=== PATIENT | female | born 1990 | race Caucasian/White ===

== ENCOUNTER → 2018-11-18 11:12 | Outpatient (CLI) | payer OTHER, SELFPAY ==
[2018-11-18 11:46] LABS: Add Manual Diff / Slide Review NO; Basophils Absolute Auto 0 /uL (0-100); Basophils Percent Auto 0.6 % (0-2); Eosinophils Absolute Auto 200 /uL (0-450); Eosinophils Percent Auto 3.2 % (2-4); Hematocrit 35.5 % (36-46); Lymphocytes Absolute Auto 1500 /uL (1100-4500); Lymphocytes Percent Auto 21.8 % (25-40); Mean Corpuscular HGB Conc 33.9 % (30-36); Mean Corpuscular Hemoglobin 28.8 PG (26-34); Mean Corpuscular Volume 84.8 fL (80-100); Monocytes Absolute Auto 500 /uL (0-900); Monocytes Percent Auto 6.9 % (3-14); Neutrophils Absolute Auto 4500 /uL (1500-7000); Neutrophils Percent Auto 67.5 % (50-75); Platelet Count 233 X10^3/uL (150-400); Red Blood Cell Count 4.18 X10^6/uL (4.0-5.2); Red Cell Distribution Width 13.2 % (11.6-14.8); White Blood Cell Count 6.7 X10^3/uL (4.5-11.0)
[2018-11-18 12:09] LABS: Alanine Aminotransferase 24 IU/L (9-52); Albumin 4.2 g/dL (3.5-5.0); Albumin Globulin Ratio 1.6 (1.0-2.8); Alkaline Phosphatase 32 U/L (38-126); Aspartate Aminotransferase 23 IU/L (14-36); BUN Creatinine Ratio 21.7 (6-22); Bilirubin Total 0.3 mg/dL (0.2-1.3); Blood Urea Nitrogen 13 mg/dL (7-17); Calcium 9.3 mg/dL (8.4-10.2); Carbon Dioxide 26 mmol/L (22-32); Chloride 105 mmol/L (98-107); Estimated Glomerular Filt Rate > 60.0 mL/min (>60); Globulin 2.7 g/dL (1.7-4.1); Glucose 89 mg/dL (70-100); HEMOLYSIS < 15 (0-50); Potassium 4.4 mmol/L (3.4-5.1); Sodium 139 mmol/L (137-145); Total Protein 6.9 g/dL (6.3-8.2)
[2018-11-18 12:52] LABS: TSH w/ Reflex to FT4 1.32 uIU/mL (0.47-4.68)
== END ==
PROVIDERS: PCP Nurse Practitioner; Visit Provider Nurse Practitioner
DX: Z00.00 Encounter for general adult medical examination without abnormal findings (principal); R63.4 Abnormal weight loss
CPT/HCPCS: 36415; 80053; 84443; 85025

== ENCOUNTER → 2019-08-31 14:50 | Outpatient (CLI) | payer OTHER, MEDICAID, SELFPAY ==
[2019-08-31 14:57] LABS: Bacteria Urine None Seen
[2019-08-31 15:35] LABS: Add Manual Diff / Slide Review NO; Basophils Absolute Auto 0 /uL (0-100); Basophils Percent Auto 0.4 % (0-2); Eosinophils Absolute Auto 100 /uL (0-450); Hematocrit 38.4 % (36-46); Hemoglobin 12.8 g/dL (12.0-16.0); Lymphocytes Absolute Auto 1200 /uL (1100-4500); Lymphocytes Percent Auto 10.3 % (25-40); Mean Corpuscular HGB Conc 33.3 % (30-36); Mean Corpuscular Hemoglobin 28.5 PG (26-34); Mean Corpuscular Volume 85.7 fL (80-100); Monocytes Absolute Auto 600 /uL (0-900); Monocytes Percent Auto 5.3 % (3-14); Neutrophils Absolute Auto 9700 /uL (1500-7000); Platelet Count 287 X10^3/uL (150-400); Red Blood Cell Count 4.48 X10^6/uL (4.0-5.2); Red Cell Distribution Width 14.1 % (11.6-14.8); White Blood Cell Count 11.7 X10^3/uL (4.5-11.0)
[2019-08-31 15:36] LABS: Appearance Urine UA CLEAR; Bilirubin Urine UA NEGATIVE (NEGATIVE); Color Urine UA YELLOW; Glucose Urine UA NEGATIVE (Negative); Ketones Urine UA NEGATIVE (NEGATIVE); Leukocyte Esterase Urine UA NEGATIVE (NEGATIVE); Nitrite Urine UA NEGATIVE (Negative); Occult Blood Urine UA NEGATIVE (Negative); Protein Urine UA NEGATIVE (Negative); Urobilinogen Urine UA 0.2 E.U./dL (0.2)
[2019-08-31 15:54] LABS: Culture Indicated Urine Cult Not Indicated; RBC Urine 0-1/HPF (0-5/HPF); Squamous Epithelial Cell Urine 5-10 /HPF (0-5/HPF); Transitional Epi Cells Urine 0-1/HPF (0-5/HPF); WBC Urine 0-1/HPF (0-5/HPF)
[2019-08-31 16:02] LABS: Alanine Aminotransferase 19 IU/L (<35); Albumin 4.3 g/dL (3.5-5.0); Albumin Globulin Ratio 1.7 (1.0-2.8); Alkaline Phosphatase 43 U/L (38-126); Aspartate Aminotransferase 27 IU/L (14-36); BUN Creatinine Ratio 13.3 (6-22); Bilirubin Total 0.3 mg/dL (0.2-1.3); Blood Urea Nitrogen 8 mg/dL (7-17); Calcium 9.6 mg/dL (8.4-10.2); Carbon Dioxide 28 mmol/L (22-32); Chloride 105 mmol/L (98-107); Estimated Glomerular Filt Rate > 60.0 mL/min (>60); Globulin 2.5 g/dL (1.7-4.1); Glucose 93 mg/dL (70-100); HEMOLYSIS < 15 (0-50); Lipase 58 U/L (23-300); Potassium 4.4 mmol/L (3.4-5.1); Sodium 138 mmol/L (137-145); Total Protein 6.8 g/dL (6.3-8.2)
[2019-08-31 16:17] LABS: HCG Quantitative /Beta subunit < 2.4 mIU/mL
[2019-08-31 16:31] LABS: TSH w/ Reflex to FT4 0.55 uIU/mL (0.47-4.68)
== END ==
PROVIDERS: PCP Nurse Practitioner; Referring Provider Registered Nurse Diabetes Educator; Visit Provider Registered Nurse Diabetes Educator
DX: R10.9 Unspecified abdominal pain (principal); R42 Dizziness and giddiness
CPT/HCPCS: 36415; 80053; 81001; 83690; 84443; 84702; 85025

== ENCOUNTER → 2019-12-21 13:38 | Outpatient (CLI) | payer OTHER, MEDICAID, SELFPAY ==
[2019-12-21 14:45] LABS: Influenza A - CEPHEID Flu A NEGATIVE (NEGATIVE); Influenza B - CEPHEID Flu B NEGATIVE (NEGATIVE)
[2019-12-23 20:06] LABS: COVID19 Sendout Not Detected (Not Detect)
== END ==
PROVIDERS: PCP Nurse Practitioner; Visit Provider Physician Assistant
DX: R68.89 Other general symptoms and signs (principal); Z11.59 Encounter for screening for other viral diseases
CPT/HCPCS: 87502; 87635

== ENCOUNTER 2020-07-17 12:23 | Emergency (ER) | payer OTHER, MEDICAID, SELFPAY ==
[2020-07-17 12:23] VITALS: BP 122/58; PULSE 72; RESP 16; TEMP 36.5; O2SAT 98; BMI 22.1
--- NOTE | 2020-07-17 12:42 | ED_ITS ---
HPI - General Adult General Chief complaint: Shortness of Breath/Dyspnea Stated complaint: SOB Time Seen by Provider: 07/17/20 12:31 Source: patient Mode of arrival: Ambulatory Limitations: no limitations History of Present Illness HPI narrative: 30-year-old female who is here in the emergency department for evaluation of approximately 1 week of occasional shortness of breath. She states that it has happened every day however there have been periods where she has not any symptoms. She does not think that is associated with any chest discomfort. She recently had a endoscopy for further evaluation of reflux d isease/ulcer. She has not tried anything for her symptoms. Related Data Home Medications Medication Instructions Recorded Confirmed No Known Home Medications 08/23/18 03/05/20 Previous Rx's Medication Instructions Recorded fluconazole 150 mg tablet 150 mg PO Q3D #2 tab 06/20/20 Allergies Allergy/AdvReac Type Severity Reaction Status Date / Time Sulfa (Sulfonamide Allergy Mild skin rash Verified 03/05/20 14:03 Antibiotics) Review of Systems Constitutional Constitutional: Reports system reviewed and no additional complaints, except as documented and Denies fever(s) Cardiovascular Cardiovascular: Denies chest pain and Reports dyspnea Respiratory Respiratory: Denies cough and Reports dyspnea Gastrointestinal Gastrointestinal: Reports system reviewed and no additional complaints, except as documented and Denies abdominal pain Musculoskeletal Musculoskeletal: Reports system reviewed and no additional complaints, except as documented and Denies back pain Integumentary/Breasts Skin/Breast: Reports system reviewed and no additional complaints, except as do cumented Neurologic Neurologic: Reports system reviewed and no additional complaints, except as documented Hematologic/Lymphatic Hematologic/Lymphatic: Reports system reviewed and no additional complaints, except as documented Allergic/Immunologic Allergic/Immunologic: Reports system reviewed and no additional complaints, except as documented Patient History Medical History Abdominal pain Allergies (~2013) Anxiety (~2012) Astigmatism Carpal tunnel syndrome (~2010) Chicken pox (~1995) Depression (~2013) Dizziness GERD (gastroesophageal reflux disease) (~2016) Ovarian cyst (~2008) Surgical History Anesthesia Encounter for insertion of ParaGard IUD (~09/28/16) [place] teeth removed (~2009) Family History Father Hyperlipidemia Hypertension Mother Hyperlipidemia Sister Mental health problem Grandfather Cancer Grandmother History of heart disease Stroke Grandmother Cancer Social History Smoking Status: Current every day smoker Smoking Status: Current every day smoker tobacco type: cigarettes Substance Use Type: does not use Exam Initial Vital Signs Initial Vital Signs: Vital Signs Temperature 97.7 F 07/17/20 12:23 Pulse Rate 72 07/17/20 12:23 Respiratory Rate 16 07/17/20 12:23 Blood Pressure 122/58 L 07/17/20 12:23 Pulse Oximetry 98 07/17/20 12:23 Const General: cooperative, healthy appearing and comfortable Limitations: mental status not altered HENMT Head: normal to inspection and normocephalic Resp Effort & Inspection: normal respiratory effort Auscultation: clear to auscultation bilaterally Cardio Rate: regular rate Rhythm: regular rhythm GI Inspection: non-distended Palpation: soft Skin Lesions: no lesions Rashes: no rashes Neuro General: patient alert and patient awake Cognition: normal cognition Speech: speech normal Extrem General: normal to inspection and capillary refill normal Psych Appearance: grossly normal and well kempt Course Vital Signs Vital signs: Vital Signs - 8 hr 07/17/20 12:23 Temperature 97.7 F Pulse Rate 72 Respiratory Rate 16 Blood Pressure 122/58 L Pulse Oximetry 98 Medical Decision Making Imaging Data Chest x-ray: Radiologist's Impression: [address] [id number] ReportSigned Patient: Maryjo Dill [facility]#: [id number]: 1990Acct:[id number]/Sex: 30 / FDate of Service: 07/17/20Loc: EDAccession Number: [id number] Procedure: XR chest 1V Ordering Provider: Syd Regalado D.O. PROCEDURE: XR CHEST 1V INDICATIONS: SHORTNESS OF BREATH TECHNIQUE: One view of the chest was acquired. COMPARISON: None. FINDINGS: Surgical changes and devices: None. Lungs and pleura: Lungs are clear. No pleural effusions or pneumothorax. Mediastinum: Mediastinal contours appear normal. Heart size is normal. Bones and chest wall: No suspicious bony lesions. Overlying soft tissues appear unremarkable. IMPRESSION: No acute cardiopulmonary findings Dictated by: Guillaume Benites M.D. on 07/17/2020 at 12:29 Approved by: Guillaume Benites M.D. on 07/17/2020 at 12:29 [facility] Narrative Medical decision making narrative: Chest x-ray is unremarkable. She has a benign exam. Is in no respiratory distress. Tachypneic. I have low suspicion for pneumonia. Low suspicion for ACS. Low suspicion for pulmonary embolism. She does have a history of reflux disease. She is no longer on any medications for this. She stated that her endoscopy that was performed did not show any ulcers. I wonder if her occasional shortness of breath is related to aspiration secondary to reflux disease. Unfortunately I have no way of definitively knowing this. I did recommend that she start back on her medicines to see if this does not resolve her symptoms. No indication for antibiotics. We discussed return precautions and follow-up instructions. She expressed understanding and agreement Discharge Plan Departure Patient Disposition: Home Clinical Impression: Shortness of breath Instructions: DI for Shortness of Breath Activity Restrictions/Additional Instructions: Your x-ray and exam today are very reassuring. I recommend that you start back on your reflux medications like we discussed. Keep all of your scheduled medical appointments. Return to the emergency department for any new or worsening symptoms Prescriptions: No Action fluconazole [Diflucan] 150 mg tablet 150 mg PO Q3D Qty: 2 RF: 1 No Known Home Medications RF: 0 Referrals: Magaly Tavarez ARNP [Primary Care Provider] -
== END 2020-07-17 13:53 | disposition home or self-care (01) ==
PROVIDERS: Emergency Provider Emergency Medicine; PCP Nurse Practitioner
DX: R06.02 Shortness of breath (principal)
CPT/HCPCS: 71045; 99283

== ENCOUNTER 2020-10-22 03:54 | Emergency (ER) | payer OTHER, MEDICAID, SELFPAY ==
[2020-10-22 04:00] VITALS: PULSE 89; RESP 12; O2SAT 99
[2020-10-22 04:01] VITALS: BP 145/69; PULSE 95; RESP 18; TEMP 36.7; O2SAT 98; BMI 22.1
--- NOTE | 2020-10-22 04:03 | DI.RAD.S_ITS ---
PROCEDURE: XR CHEST 1V INDICATIONS: chest pressure, heart racing TECHNIQUE: One view of the chest was acquired. COMPARISON: [facility], , XR CHEST 1V, 07/17/2020, 12:49. FINDINGS: Surgical changes and devices: None. Lungs and pleura: Lungs are clear. No pleural effusions or pneumothorax. Mediastinum: Mediastinal contours appear normal. Heart size is normal. Bones and chest wall: No suspicious bony lesions. Overlying soft tissues appear unremarkable. IMPRESSION: No evidence acute pulmonary process. Comment: Final report is concordant with preliminary interpretation provided by [facility]. Dictated by: Clayton Maza M.D. on 10/22/2020 at 7:57 Approved by: Clayton Maza M.D. on 10/22/2020 at 7:57
--- NOTE | 2020-10-22 04:13 | ED_ITS ---
HPI - Arrhythmia/Palpitations General Chief Complaint: Arrhythmia/Palpitations Stated Complaint: WAKING UP WITH DIZZINESS HEART POUNDING Time Seen by Provider: 10/22/20 03:55 Source: patient Mode of arrival: Ambulatory Limitations: no limitations History of Present Illness HPI narrative: 30-year-old female smoker with history of depression, anxiety presents with significant other and a chief complaint of having difficulty sleeping after waking with palpitations, chest pressure and lightheadedness. She states that her symptoms are still present and there is no obvious provocation or palliation. She states that this has been happening nearly every night this week despite the fact that she feels fine during the day. She denies any prescription or leda-sje-spbfoia medications. She denies any dietary change or change in behavior, work or social activities. She states that she had 3 drinks last night which isn't necessarily abnormal for her. She is vaccinated against COVID. She denies any runny nose, sore throat or cough. She denies any recent travel, history of blood clot. She denies abdominal pain, vomiting or diarrhea but she is slightly nauseated. She has no dysuria, frequency or urgency. Her last menstrual cycle was a few weeks ago and normal for her Related Data Home Medications Medication Instructions Recorded Confirmed No Known Home Medications 08/23/18 03/05/20 Previous Rx's Medication Instructions Recorded fluconazole 150 mg tablet 150 mg PO Q3D #2 tab 06/20/20 (Diflucan) Allergies Allergy/AdvReac Type Severity Reaction Status Date / Time Sulfa (Sulfonamide Allergy Mild skin rash Verified 03/05/20 14:03 Antibiotics) Review of Systems Review of Systems Narrative: GENERAL: See HPI HEENT: Denies sinus pain, ear pain, sore throat, difficulty swallowing, dizziness. RESPIRATORY: See HPI CARDIOVASCULAR: See HPI GASTROINTESTINAL: See HPI : Denies dysuria, frequency, incontinence, hematuria, urinary retention. MUSCULOSKELETAL: denies weakness, joint pain, or bony pain SKIN: Denies rash, skin lesions, or other NEUROLOGIC: Denies weakness, headache, numbness, change in speech, confusion, seizures, incoordination. PSYCHIATRIC: No concerning psychosocial issues. 12 point review of systems is negative except for those stated above Patient History Medical History (Updated 10/22/20 @ 05:47 by Dominguez Vega DO) Abdominal pain Allergies (~2013) Anxiety (~2012) Astigmatism Carpal tunnel syndrome (~2010) Chicken pox (~1995) Depression (~2013) Dizziness GERD (gastroesophageal reflux disease) (~2016) Ovarian cyst (~2008) Surgical History Anesthesia Encounter for insertion of ParaGard IUD (~09/28/16) [place] teeth removed (~2009) Family History Father Hyperlipidemia Hypertension Mother Hyperlipidemia Sister Mental health problem Grandfather Cancer Grandmother History of heart disease Stroke Grandmother Cancer Social History Smoking Status: Current every day smoker Smoking Status: Current every day smoker tobacco type: cigarettes alcohol intake frequency: 0-2 drinks per day Substance Use Type: does not use Exam Narrative Exam Narrative: GENERAL: [30] year old patient appears stated age. Well-d eveloped patient, in mild distress. HEAD: Atraumatic. Normocephalic. EYES: Pupils equal round and reactive. Extraocular motions intact. No scleral icterus. No injection or drainage. ENT: Nose without bleeding, purulent drainage. Throat without erythema, tonsillar hypertrophy or exudate. Airway patent. NECK: Trachea midline. Non tender CARDIOVASCULAR: Regular rate and rhythm without murmurs, gallops, or rubs. RESPIRATORY: Clear to auscultation. Breath sounds equal bilaterally. No wheezes, rales, or rhonchi. GASTROINTESTINAL: Abdomen soft, non-tender, nondistended. EXTREMITIES: No edema or joint tenderness. BACK: Nontender without deformity or crepitance. No flank tenderness. NEURO: AOx3. SKIN: No rash or erythema of visible areas Initial Vital Signs Initial Vital Signs: Vital Signs Pulse Rate 89 10/22/20 04:00 Respiratory Rate 12 10/22/20 04:00 Pulse Oximetry 99 10/22/20 04:00 Course Orders Ordered: ED Orders 10/22/20 04:03 XR chest 1V Stat EKG-12 Lead Stat 10/22/20 04:15 Basic Metabolic Panel Stat COVID19 -Nasal swab/Pre-Proc Stat Complete Blood Count AUTO DIFF Stat Magnesium Stat Thyroid Stimulating Hormone Stat Troponin & CK Cardiac Panel Stat Discontinued Medications Sodium Chloride (Normal Saline 0.9%) 1,000 mls @ 1,000 mls/hr IV BOLUS ONE Stop: 10/22/20 05:02 Last Infusion: 10/22/20 05:20 Dose: 1,000 mls/hr Documented by: Admin: 10/22/20 04:22 Dose: 1,000 mls/hr Documented by: [place] Vital Signs Vital signs: Vital Signs - 8 hr 10/22/20 04:00 10/22/20 04:01 10/22/20 04:30 Temperature 98.1 F Pulse Rate 89 95 H 71 Respiratory Rate 12 18 18 Blood Pressure 145/69 H Pulse Oximetry 99 98 100 10/22/20 06:03 Temperature Pulse Rate 65 Respiratory Rate 15 Blood Pressure 103/60 Pulse Oximetry 98 MDM - Arrhythmia/Palpitations Lab Data Result diagrams: 10/22/20 04:15 10/22/20 04:15 Labs: Lab Results 10/22/20 10/22/20 10/22/20 Range/Units 04:15 04:15 04:15 WBC 9.9 (4.5-11.0) X10^3/uL RBC 4.55 (4.0-5.2) X10^6/uL Hgb 13.1 (12.0-16.0) g/dL Hct 39.1 (36-46) % MCV 85.9 (80-100) fL MCH 28.7 (26-34) PG MCHC 33.4 (30-36) % RDW 12.8 (11.6-14.8) % Plt Count 310 (150-400) X10^3/uL Neut % (Auto) 58.5 (50-75) % Lymph % (Auto) 29.4 (25-40) % [place] % (Auto) 6.2 (3-14) % Eos % (Auto) 5.0 H (2-4) % Baso % (Auto) 0.9 (0-2) % Neut # (Auto) 5800 (6009-8106) /uL Lymph # (Auto) 2900 (1582-6339) /uL [place]corn # (Auto) 600 (0-900) /uL Eos # (Auto) 500 H (0-450) /uL Baso # (Auto) 100 (0-100) /uL Sodium 139 (137-145) mmol/L Potassium 4.0 (3.4-5.1) mmol/L Chloride 104 (98-107) mmol/L Carbon Dioxide 28 (22-32) mmol/L BUN 15 (7-17) mg/dL Creatinine 0.57 (0.52-1.04) mg/dL Estimated GFR > 60.0 (>60) mL/min BUN/Creatinine Ratio 26.3 H (6-22) Glucose 98 (70-100) mg/dL Calcium 9.5 (8.4-10.2) mg/dL Magnesium 2.0 (1.6-2.3) mg/dL Total Creatine Kinase 41 (30-135) U/L CK-MB (CK-2) TNP CK-MB (CK-2) Rel Index TNP Troponin I < 0.012 (0.01-0.034) ng/mL TSH 5.08 H (0.47-4.68) uIU/mL SARS-CoV-2 (PCR) (Negative) 10/22/20 Range/Units 04:15 WBC (4.5-11.0) X10^3/uL RBC (4.0-5.2) X10^6/uL Hgb (12.0-16.0) g/dL Hct (36-46) % MCV (80-100) fL MCH (26-34) PG MCHC (30-36) % RDW (11.6-14.8) % Plt Count (150-400) X10^3/uL Neut % (Auto) (50-75) % Lymph % (Auto) (25-40) % [place] % (Auto) (3-14) % Eos % (Auto) (2-4) % Baso % (Auto) (0-2) % Neut # (Auto) (2898-8737) /uL Lymph # (Auto) (1357-6316) /uL Alcorn # (Auto) (0-900) /uL Eos # (Auto) (0-450) /uL Baso # (Auto) (0-100) /uL Sodium (137-145) mmol/L Potassium (3.4-5.1) mmol/L Chloride (98-107) mmol/L Carbon Dioxide (22-32) mmol/L BUN (7-17) mg/dL Creatinine (0.52-1.04) mg/dL Estimated GFR (>60) mL/min BUN/Creatinine Ratio (6-22) Glucose (70-100) mg/dL Calcium (8.4-10.2) mg/dL Magnesium (1.6-2.3) mg/dL Total Creatine Kinase (30-135) U/L CK-MB (CK-2) CK-MB (CK-2) Rel Index Troponin I (0.01-0.034) ng/mL TSH (0.47-4.68) uIU/mL SARS-CoV-2 (PCR) Negative (Negative) Point of Care Testing Test Results Negative Urine Dip Bedside Urine Glucose Negative Bedside Urine Bilirubin - Negative Bedside Urine Ketone - Negative Urine Specific [place] 1.030 Bedside Urine Occult Blood - Negative Bedside Urine pH 6.0 Bedside Urine Protein - Negative Bedside Urine Urobilinogen - Negative Bedside Urine Nitrite - Negative Bedside Urine Leukocytes - Negative Esterase ECG Data Interpretation: EKG is normal sinus rhythm rate [70 ] and free of any signs of ischemia or ectopy. No ST segmental elevation or depression. No T wave inversions MDM Narrative Medical decision making narrative: Multiple etiologies for patient's symptoms considered including: [arrhythmia vs. electrolyte abnormality vs. dehydration vs. thyroid disease vs. anxiety vs. other] Patient's symptoms improved over duration of stay with above-stated therapies. Findings and discharge diagnosis discussed with patient/family followed by verbalization of understanding Return precautions discussed with patient/family whom verbalize understanding. Discharge Plan Departure Patient Disposition: Home Clinical Impression: Heart palpitations, Nausea, Atypical chest pain Instructions: DI for Nausea -- Adult Activity Restrictions/Additional Instructions: *You have been diagnosed with [nausea, palpitations, atypical chest pain. Your physical exam, lab work and EKG are very reassuring] *What to do: *Please continue to take your regular medications as directed. [ ] New medication prescriptions sent to your pharmacy: [ ] [ ] New medication written as a paper prescription [ x] No new medications given *Please follow up with your primary care provider in 2-3 days, call for an appointment. Let them know you were seen in the Emergency Department and that we ask that you be seen in follow up. We will electronically transmit a record of today's note if your PCP is in our system *If you do not have a primary care provider please contact the [facility] Resource line at [phone]. They will ask some questions about your medical history and help get you set up with a doctor in the community. *Return to Emergency Department if you should have any new, worsening or concerning symptoms, such as [fever greater than 101 F, shaking chills, worsening pain, persistent vomiting or other bothersome symptoms] Prescriptions: No Action fluconazole [Diflucan] 150 mg tablet 150 mg PO Q3D Qty: 2 RF: 1 No Known Home Medications RF: 0 Referrals: Magaly Tavraez ARNP [Primary Care Provider] -
[2020-10-22] MEDS: SODIUM CHLORIDE 0.9% 1,000 ML 1000 ML IV (04:22)
[2020-10-22 04:30] VITALS: PULSE 71; RESP 18; O2SAT 100
[2020-10-22 04:39] LABS: Add Manual Diff / Slide Review NO; Basophils Absolute Auto 100 /uL (0-100); Basophils Percent Auto 0.9 % (0-2); Eosinophils Absolute Auto 500 /uL (0-450); Hematocrit 39.1 % (36-46); Hemoglobin 13.1 g/dL (12.0-16.0); Lymphocytes Absolute Auto 2900 /uL (1100-4500); Lymphocytes Percent Auto 29.4 % (25-40); Mean Corpuscular HGB Conc 33.4 % (30-36); Mean Corpuscular Hemoglobin 28.7 PG (26-34); Mean Corpuscular Volume 85.9 fL (80-100); Monocytes Absolute Auto 600 /uL (0-900); Monocytes Percent Auto 6.2 % (3-14); Neutrophils Absolute Auto 5800 /uL (1500-7000); Neutrophils Percent Auto 58.5 % (50-75); Platelet Count 310 X10^3/uL (150-400); Red Blood Cell Count 4.55 X10^6/uL (4.0-5.2); Red Cell Distribution Width 12.8 % (11.6-14.8); White Blood Cell Count 9.9 X10^3/uL (4.5-11.0)
[2020-10-22 04:49] LABS: COVID19 -Nasal RAPID Negative (Negative)
[2020-10-22 04:57] LABS: BUN Creatinine Ratio 26.3 (6-22); Blood Urea Nitrogen 15 mg/dL (7-17); Calcium 9.5 mg/dL (8.4-10.2); Carbon Dioxide 28 mmol/L (22-32); Chloride 104 mmol/L (98-107); Creatine Kinase 41 U/L (30-135); Estimated Glomerular Filt Rate > 60.0 mL/min (>60); Glucose 98 mg/dL (70-100); Sodium 139 mmol/L (137-145)
[2020-10-22 05:10] LABS: HEMOLYSIS < 15 (0-50); Troponin I < 0.012 ng/mL (0.01-0.034)
[2020-10-22 05:34] LABS: Thyroid Stimulating Hormone 5.08 uIU/mL (0.47-4.68)
[2020-10-22 06:03] VITALS: BP 103/60; PULSE 65; RESP 15; O2SAT 98
== END 2020-10-22 06:04 | disposition home or self-care (01) ==
PROVIDERS: Emergency Provider Emergency Medicine; PCP Nurse Practitioner
DX: R00.2 Palpitations (principal); R07.89 Other chest pain; R11.0 Nausea; R42 Dizziness and giddiness; Z20.822 Contact with and (suspected) exposure to COVID-19
CPT/HCPCS: 36415; 71045; 80048; 81003; 81025; 82550; 83735; 84443; 84484; 85025; 87635; 93005; 96360; 99284; C9803

== ENCOUNTER 2020-10-26 19:17 | Emergency (ER) | payer OTHER, MEDICAID, SELFPAY ==
[2020-10-26 19:19] VITALS: BP 126/69; PULSE 109; RESP 20; TEMP 36.6; O2SAT 100; BMI 22.1
--- NOTE | 2020-10-26 19:28 | DI.CT.S_ITS ---
PROCEDURE: CT HEAD/BRAIN WO CON INDICATIONS: headache with vision changes TECHNIQUE: Noncontrast 4.5 mm thick angled axial sections acquired from the foramen magnum to the vertex, with coronal and sagittal reformats. For radiation dose reduction, the following was used: automated exposure control, adjustment of mA and/or kV according to patient size. COMPARISON: None. FINDINGS: Image quality: Excellent. CSF spaces: Basal cisterns are patent. No extra-axial fluid collections. Ventricles are normal in size and shape. Brain: No midline shift. No acute intracranial hemorrhage. Lopez-white matter interface is normal. Incidental note pineal gland calcifications. No evidence for mass effect or hydrocephalus. Skull and face: Calvarium and visualized facial bones are intact, without suspicious lesions. Sinuses: Visualized sinuses and mastoids are clear. IMPRESSION: 1. CT head without acute intracranial abnormalities. 2. Incidental note of prominent dense pineal gland calcifications. No mass effect. No hydrocephalus. If there is persistent clinical concern, consider further evaluation with nonemergent contrast enhanced brain MRI. Dictated by: Power Martínez M.D. on 10/26/2020 at 20:27 Approved by: Power Martínez M.D. on 10/26/2020 at 20:34
[2020-10-26 22:25] VITALS: BP 96/75; PULSE 66; O2SAT 99
--- NOTE | 2020-10-26 22:41 | ED.HA ---
HPI - Headache General Chief Complaint: Headache Stated Complaint: HEADACHE VISION ISSUES CONSINTRATED RT EYE Time Seen by Provider: 10/26/20 22:41 Mode of arrival: Ambulatory Limitations: no limitations History of Present Illness HPI Narrative: 30-year-old female smoker with history of depression, anxiety?along with recent headaches and also some episodes of vision change in her right eye presents at the request of her primary care provider. She has had various symptoms as stated over the past days to weeks and her primary care provider is doing an excellent job of helping evaluate her. She denies any recent trauma. She denies much in the way of current symptoms. She's had no new medications or diet. She's had no fever, chills, or neck pain. There has been some discussion about whether not the headaches have been secondary to a change in her vision which might be corrected by the assistance of an digital color press operator. She states that the pain is largely on the right side of her head intense to be achy or throbbing in nature and the vision change often follows that. The vision change includes occasional haziness in her right eye, flashers or streaks. She denies any double vision or pain in her eye or with extraocular motions. Related Data Home Medications Medication Instructions Recorded Confirmed No Known Home Medications 08/23/18 03/05/20 Allergies Allergy/AdvReac Type Severity Reaction Status Date / Time Sulfa (Sulfonamide Allergy Mild skin rash Verified 10/26/20 19:23 Antibiotics) Review of Systems Review of Systems Narrative: GENERAL: Denies chills, fatigue, malaise, fever, sweats. HEENT: See HPI RESPIRATORY: Denies dyspnea, cough, wheezing, hemoptysis, sputum. CARDIOVASCULAR: Denies chest pain, palpitations, orthopnea, edema, GASTROINTESTINAL: Denies nausea, vomiting, abdominal pain, diarrhea, constipation, melena. : Denies dysuria, frequency, incontinence, hematuria, urinary retention. MUSCULOSKELETAL: denies weakness, joint pain, or bony pain SKIN: Denies rash, skin lesions, or other NEUROLOGIC: See HPI PSYCHIATRIC: No concerning psychosocial issues. 12 point review of systems is negative except for those stated above Patient History Medical History Abdominal pain Allergies (~2013) Anxiety (~2012) Astigmatism Carpal tunnel syndrome (~2010) Celiac disease Chicken pox (~1995) Depression (~2013) Dizziness GERD (gastroesophageal reflux disease) (~2016) Ovarian cyst (~2008) Surgical History Anesthesia Encounter for insertion of ParaGard IUD (~09/28/16) [place] teeth removed (~2009) Family History Father Hyperlipidemia Hypertension Mother Hyperlipidemia Sister Mental health problem Grandfather Cancer Grandmother History of heart disease Stroke Grandmother Cancer Social History Smoking Status: Current every day smoker Smoking Status: Current every day smoker tobacco type: cigarettes alcohol intake frequency: 0-2 drinks per day Substance Use Type: does not use Exam Narrative Exam Narrative: GENERAL: [30] year old patient appears stated age. Well-developed patient, in mild distress. HEAD: Atraumatic. Normocephalic. EYES: Pupils equal round and reactive. Extraocular motions intact. No scleral icterus. No injection or drainage. Pressure in right eye 21mmHg. normal fundoscopic, no hyphema ENT: Nose without bleeding, purulent drainage. Throat without erythema, tonsillar hypertrophy or exudate. Airway patent. NECK: Trachea midline. Non tender CARDIOVASCULAR: Regular rate and rhythm without murmurs, gallops, or rubs. RESPIRATORY: Clear to auscultation. Breath sounds equal bilaterally. No wheezes, rales, or rhonchi. GASTROINTESTINAL: Abdomen soft, non-tender, nondistended. EXTREMITIES: No edema or joint tenderness. BACK: Nontender without deformity or crepitance. No flank tenderness. NEURO: AOx3. SKIN: No rash or erythema of visible areas Initial Vital Signs Initial Vital Signs: Vital Signs Temperature 97.9 F 10/26/20 19:19 Pulse Rate 109 H 10/26/20 19:19 Respiratory Rate 20 10/26/20 19:19 Blood Pressure 126/69 10/26/20 19:19 Pulse Oximetry 100 10/26/20 19:19 Course Orders Ordered: Discontinued Medications Proparacaine HCl (Proparacaine 0.5% Ophth Sammie) 1 drops EYE-RIGHT NOW ONE Stop: 10/26/20 23:45 Last Admin: 10/26/20 23:49 Dose: 1 drop Documented by: HGUBERN Vital Signs Vital signs: Vital Signs - 8 hr 10/26/20 22:25 10/26/20 22:45 10/26/20 23:00 Pulse Rate 66 75 65 Blood Pressure 96/75 98/59 L Pulse Oximetry 99 100 100 10/26/20 23:30 Pulse Rate 67 Blood Pressure 99/58 L Pulse Oximetry 98 MDM - Headache Lab Data Labs: Point of Care Testing Test Results Negative Imaging Data CT scan - head: Radiologist's Impression: [facility] Narrative Medical decision making narrative: Patient has a very reassuring physical exam and CT scan. Patient has no other focal neurologic symptoms. Stroke thought to be unlikely, mass, subarachnoid hemorrhage also considered but thought unlikely. I do question the possibility of ocular migraines but also talked with the patient about having a conversation with her PCP about obtaining an MRI as MS should also be considered. She has been given return precautions and questions answered to her apparent satisfaction Discharge Plan Departure Patient Disposition: Home Clinical Impression: Alteration in vision Headache Qualifiers: Headache type: unspecified Headache chronicity pattern: unspecified pattern Intractability: not intractable Qualified Code(s): R51.9 - Headache, unspecified Instructions: DI for Headache Activity Restrictions/Additional Instructions: *You have been diagnosed with [headache and episodes of vision change *What to do: *Please continue to take your regular medications as directed. [ ] New medication prescriptions sent to your pharmacy: [ ] [ ] New medication written as a paper prescription [x ] No new medications given *Please follow up with your primary care provider in 2-3 days, call for an appointment. Let them know you were seen in the Emergency Department and that we ask that you be seen in follow up. We will electronically transmit a record of today's note if your PCP is in our system. It would seem reasonable to discuss the possibility of considering an MRI of your brain as the so 1 of the next steps for the evaluation of your symptoms, you can talk with your primary care provider about this *Return to ER if you should have any new, worsening or concerning symptoms, such as [ fever > 101F, neck pain or stiffness, vomiting, confusion, seizure, focal weakness, vision change, speech deficit or other concerning symptoms ] Prescriptions: No Action No Known Home Medications RF: 0 Referrals: Magaly Tavarez ARNP [Primary Care Provider] -
[2020-10-26 22:45] VITALS: PULSE 75; O2SAT 100
[2020-10-26 23:00] VITALS: BP 98/59; PULSE 65; O2SAT 100
[2020-10-26 23:30] VITALS: BP 99/58; PULSE 67; O2SAT 98
[2020-10-26] MEDS: PROPARACAINE 0.5% OPHTH SOL 1 DROPS EYE-RIGHT (23:49)
== END 2020-10-27 | disposition home or self-care (01) ==
PROVIDERS: Emergency Provider Emergency Medicine; PCP Nurse Practitioner
DX: H54.7 Unspecified visual loss (principal); R51.9 Headache, unspecified
CPT/HCPCS: 70450; 81025; 99282; 99284

== ENCOUNTER → 2020-11-15 07:07 | Outpatient (CLI) | payer OTHER, MEDICAID, SELFPAY ==
--- NOTE | 2020-11-15 07:08 | DI.MRI.S_ITS ---
PROCEDURE: MR HEAD/BRAIN WO/W CON INDICATIONS: Worsening migraine headaches TECHNIQUE: Noncontrast axial T1 spin echo, axial T2 fast spin echo, sagittal and axial FLAIR, coronal T2 fast spin echo, axial gradient echo, axial diffusion and ADC through the brain. After the administration of contrast, axial and coronal 3D VIBE or T1 spin echo with fat saturation through the brain. COMPARISON: [facility], CT, CT HEAD/BRAIN WO CON, 10/26/2020, 19:55. FINDINGS: Image quality: Excellent. CSF Spaces: Basal cisterns are patent. No extra-axial fluid collections. Ventricles are normal in size and shape. Brain: No midline shift. No intracranial bleeds or masses. No abnormal intracranial enhancement. The brainstem appears normal. 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 Diffusion-weighted images demonstrate no acute ischemic insults. No chronic ischemic insults. Normal intravascular flow voids are present. Skull and face: Calvarial marrow is normal in signal. Orbits appear normal. Sinuses: Sinuses and mastoids appear clear. IMPRESSION: Negative evaluation. No explanation for migraines. Dictated by: Ean Carbajal M.D. on 11/15/2020 at 8:43 Approved by: Ean Carbajal M.D. on 11/15/2020 at 8:45
== END ==
PROVIDERS: PCP Nurse Practitioner; Referring Provider Nurse Practitioner; Visit Provider Nurse Practitioner
DX: H54.7 Unspecified visual loss (principal); R42 Dizziness and giddiness; G43.909 Migraine, unspecified, not intractable, without status migrainosus
CPT/HCPCS: 70553

== ENCOUNTER → 2020-12-04 10:13 | Outpatient (CLI) | payer OTHER, MEDICAID, SELFPAY ==
[2020-12-04 10:51] LABS: COVID19 -Nasal RAPID Negative (Negative)
== END ==
PROVIDERS: PCP Nurse Practitioner; Referring Provider Nurse Practitioner Family; Visit Provider Nurse Practitioner Family
DX: Z20.822 Contact with and (suspected) exposure to COVID-19 (principal); J02.9 Acute pharyngitis, unspecified
CPT/HCPCS: 87070; 87635; 87880

== ENCOUNTER → 2020-12-05 15:26 | Outpatient (CLI) | payer OTHER, MEDICAID, SELFPAY ==
[2020-12-05 16:27] LABS: Free T3, Triiodothyronine Free 3.84 pg/mL (2.77-5.27); Free T4, Direct Thyroxine 1.01 ng/dL (0.78-2.19)
[2020-12-05 16:41] LABS: Thyroid Stimulating Hormone 0.456 uIU/mL (0.47-4.68)
[2020-12-06 06:54] LABS: Thyroid Peroxidase Antibodies <8 IU/mL (0-34)
== END ==
PROVIDERS: PCP Nurse Practitioner; Referring Provider Nurse Practitioner; Visit Provider Nurse Practitioner
DX: F32.9 Major depressive disorder, single episode, unspecified (principal); F41.9 Anxiety disorder, unspecified; K90.0 Celiac disease; R00.2 Palpitations; R07.89 Other chest pain; R42 Dizziness and giddiness; R79.89 Other specified abnormal findings of blood chemistry; R11.0 Nausea
CPT/HCPCS: 36415; 84439; 84443; 84481; 86376

== ENCOUNTER → 2021-03-04 18:07 | Outpatient (CLI) | payer OTHER, MEDICAID, SELFPAY ==
[2021-03-04 18:49] LABS: COVID19 -Nasal RAPID POSITIVE (Negative)
== END ==
PROVIDERS: PCP Nurse Practitioner; Referring Provider Nurse Practitioner Family; Visit Provider Nurse Practitioner Family
DX: Z20.822 Contact with and (suspected) exposure to COVID-19 (principal)
CPT/HCPCS: 87635

== ENCOUNTER → 2021-06-27 14:06 | Outpatient (CLI) | payer OTHER, MEDICAID, SELFPAY ==
[2021-06-28 11:15] LABS: Varicella IgG Antibody 1449 index (Immune >165)
[2021-06-29 16:27] LABS: QuantiFERON Mitogen Value >10.00 IU/mL (.); QuantiFERON Nil Value 0.01 IU/mL (.); QuantiFERON TB Gold Plus Negative (Negative); QuantiFERON TB1 Ag Value 0.01 IU/mL (.); QuantiFERON TB2 Ag Value 0.02 IU/mL (.)
[2021-06-30 14:36] LABS: Hepatitis B Virus HBV DNA not detected IU/mL (.)
== END ==
PROVIDERS: PCP Nurse Practitioner; Referring Provider Nurse Practitioner; Visit Provider Nurse Practitioner
DX: Z01.84 Encounter for antibody response examination (principal); Z11.1 Encounter for screening for respiratory tuberculosis
CPT/HCPCS: 36415; 86480; 86706; 86787

== ENCOUNTER → 2021-10-03 12:47 | Outpatient (CLI) | payer OTHER, SELFPAY ==
[2021-10-04 07:24] LABS: Hepatitis B Surf AB Quant 712.3 mIU/mL (Immunity>9.9)
== END ==
PROVIDERS: PCP Nurse Practitioner; Referring Provider Nurse Practitioner; Visit Provider Nurse Practitioner
DX: Z92.29 Personal history of other drug therapy (principal)
CPT/HCPCS: 36415; 86706

== ENCOUNTER 2023-05-28 15:15 | Outpatient (RCR) | payer OTHER, SELFPAY ==
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
--- NOTE | 2023-01-22 18:42 | PT.OPPOC ---
Physical, Occupational & Speech Therapy At Current Diagnoses Other headache syndrome (01/22/23) Other chronic pain (01/22/23) Cervicalgia (01/22/23) Abnormal posture (01/22/23) Dizziness and giddiness (01/22/23) Jaw pain (01/22/23) Visit Care Team Role Provider Type KIANA Bradshaw Primary Care Provider Advanced Package Delivery Room Service Runner Specialty: Family Practice Address: [address] [place] [address], [id number] Email: [email or web address] Power Quesada DO Family Provider Non-Staff Referring Provider Specialty: Medical Address: [address] [place] [address] [address], [place], [address] Email: Jorge L Garcia MD Attending Provider Non-Staff Specialty: Family Practice Address: [address] [place] [address], [facility] [address], [place], [address] Email: Plan Of Care PT-OP-T Assessment and Plan Start: 01/22/23 08:34 Freq: Status: Active Protocol: Document 01/22/23 16:41 [facility] (Rec: 01/22/23 18:42 [facility] [id number]) Physical Therapy Assessment Rehab Potential Rehabilitation Potential Excellent Evaluation Complexity Number of Personal Factors/Comorbidities 3 or More Number of Body Systems Impaired 4 or More Clinical Presentation at Evaluation Evolving Impairments Impairments Activity Tolerance,Functional Activities,Functional Mobility ,Pain,Posture,ROM,Soft Tissue Mobility,Strength Goals posture Short Term Goal (STG) Pt will adjust sleeping position w/improved support to dec instances of waking w/inc pain and adjust desk set up to more ergonomic set up. STG Duration 02/27/23 Mcfp Goal (LTG) Pt will score at least 4/5 on VCT in both seated and standing to show improved postural alignment to dec pain in neck and head. LTG Duration 04/02/23 MCFARLANE Short Term Goal (STG) Pt will have full neck ROM w/o pain in order to allow daily activities w/o inc pain. STG Duration 03/02/23 Mcfp Goal (LTG) Pt will report no starts to a MCFARLANE or MCFARLANE for 1 month LTG Duration 04/02/23 jaw Short Term Goal (STG) Pt will improve jaw opening to at least 40 mm to allow for greater ease w/eating. STG Duration 02/27/23 Mcfp Goal (LTG) Pt will report a more even bite and note that she has does not feel bite is off when trying to chew food, making eating easier. LTG Duration 04/02/23 Assessment Summary Assessment Pt presents w/main c/o MCFARLANE/ migraines, neck pain and jaw pain that results in inc tension overall that builds up to cause inc pain in her day and occ lead to bad MCFARLANE/ migranes, which require her to completely turn off lights and rest. She does report some dizziness that may be vestibular in nature as it does happen when she changes position and may benefit from further vesibular assessment and treatment in PT. Pt does have sheared and rotated C1 and C2 which may also be contributing signficiantly to the neck pain, jaw pain and MCFARLANE and possibly dizziness. Pt would benfit from Skilled PT to address postural deficits, dec cervical stability, improve mechanics, improve jaw and cervical ROM in order to dc pain. Physical Therapy Plan Frequency and Duration Frequency of Treatment 2x/Week Duration of treatment (weeks) 10 Plan of Care Start Date 01/22/23 Plan of Care End Date 04/02/23 Therapeutic Interventions Therapeutic Interventions Canalithic Repositioning,Home Exercise Program,Joint Mobilizations,Manual Therapy, Neuromuscular Re-education, Orthotic/Prosthetic Management ,Patient/Caregiver Education, Self-Care/Home Management,Soft Tissue Mobilization,Taping, Therapeutic Activities, Therapeutic Exercises, Vestibular Rehabilitation Modalities Cold Pack/Ice Massage,Electric Stimulation,Hot Packs, Traction- Mechanical Next Visit Focus/Plan Next Note Type Treatment Note Next Visit Plan HEP:rows, wall posture, axial elongation, jaw opening w/ tongue on rugae; manual: C1-2 correction, cranial and cervical STM, upper thoracic mobilizations Plan of Care Dates Plan of Care Start Date 01/22/23 Plan of Care End Date 04/02/23 Electronically Signed by: Tyesha Fang, PT 01/22/23 [id number] If you are in agreement with this Plan of Care, please return a signed and dated copy. I have reviewed this Plan of Care and certify that the skilled therapy services above are required to meet the patient?s needs. Physician Signature Date Printed Name and Credentials Clinical Instructor Signature Printed Name and Credentials
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
--- NOTE | 2023-03-23 15:21 | PT.OPPOC ---
Physical, Occupational & Speech Therapy At [facility] Current Diagnoses Other headache syndrome (03/23/23) Other chronic pain (03/23/23) Cervicalgia (03/23/23) Abnormal posture (03/23/23) Dizziness and giddiness (03/23/23) Jaw pain (03/23/23) Visit Care Team Role Provider Type KIANA Bradshaw Primary Care Provider Advanced Mechanic Welder Truck Driver Specialty: Family Practice Address: [address] [place] [address], [id number] Email: [email or web address] Power Quesada DO Family Provider Non-Staff Referring Provider Specialty: Medical Address: [address] [place] [address]. [facility] [address], [place], [address] Email: Jorge L Garcia MD Attending Provider Non-Staff Specialty: Family Practice Address: [address] [place] [address], [facility] [address], [place], [address] Email: Plan Of Care PT-OP-T Assessment and Plan Start: 01/22/23 08:34 Freq: Status: Active Protocol: Document 03/23/23 13:50 [facility] (Rec: 03/23/23 15:20 [facility] [id number]) Physical Therapy Assessment Goals dizziness Configuration Consultant Goal (LTG) Pt will report no instance of lightheadedness or dizziness during her day LTG Duration 06/01/23 posture Short Term Goal (STG) Pt will adjust sleeping position w/improved support to dec instances of waking w/inc pain and adjust desk set up to more ergonomic set up. 03/02-woke up w/pain today; about 2-3x/week. STG Duration achieved 03/23 Configuration Consultant Goal (LTG) Pt will score at least 4/5 on VCT in both seated and standing to show improved postural alignment to dec pain in neck and head. 03/02-3/5 stand; 4/5 sit LTG Duration achieved MCFARLANE Short Term Goal (STG) Pt will have full neck ROM w/o pain in order to allow daily activities w/o inc pain. STG Duration achieved Half-Way Goal (LTG) Pt will report no starts to a MCFARLANE or MCFARLANE for 1 month 03/02-no MCFARLANE; has had a couple instances of start of MCFARLANE but hasn't escalated and cleared her sinuses and it was fine LTG Duration achieved jaw Short Term Goal (STG) Pt will improve jaw opening to at least 40 mm to allow for greater ease w/eating. 03/02-improved 03/23-dec today to 28 mm but improved to 38 after manual STG Duration 04/24/23 Configuration Consultant Goal (LTG) Pt will report a more even bite and note that she has does not feel bite is off when trying to chew food, making eating easier. 03/23-no change LTG Duration 06/01/23 Assessment Summary Assessment Pt has made great progress w/ PT with dec MCFARLANE, improved cervical ROMand did have inc jaw ROM until today but it did improve again after manual care. Focus to be on pt's bite and improving ease w/eating. Physical Therapy Plan Frequency and Duration Frequency of Treatment 1x/Week Duration of treatment (weeks) 10 Plan of Care Start Date 03/23/23 Plan of Care End Date 06/01/23 Therapeutic Interventions Therapeutic Interventions Canalithic Repositioning,Home Exercise Program,Joint Mobilizations,Manual Therapy, Neuromuscular Re-education, Orthotic/Prosthetic Management ,Patient/Caregiver Education, Self-Care/Home Management,Soft Tissue Mobilization,Taping, Therapeutic Activities, Therapeutic Exercises, Vestibular Rehabilitation Modalities Cold Pack/Ice Massage,Electric Stimulation,Hot Packs, Traction- Mechanical Next Visit Focus/Plan Next Note Type Treatment Note Next Visit Plan check on visual tracking exercises; jaw focus manually Plan of Care Dates Plan of Care Start Date 03/23/23 Plan of Care End Date 06/01/23 Electronically Signed by: Tyesha Fang, PT 03/23/23 4819 If you are in agreement with this Plan of Care, please return a signed and dated copy. I have reviewed this Plan of Care and certify that the skilled therapy services above are required to meet the patient?s needs. Physician Signature Date Printed Name and Credentials Clinical Instructor Signature Printed Name and Credentials
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
--- NOTE | 2023-05-20 18:07 | PT.OPPOC ---
Physical, Occupational & Speech Therapy At [facility] Current Diagnoses Other headache syndrome (05/20/23) Other chronic pain (05/20/23) Cervicalgia (05/20/23) Abnormal posture (05/20/23) Dizziness and giddiness (05/20/23) Jaw pain (05/20/23) Visit Care Team Role Provider Type KIANA Bradshaw Primary Care Provider Advanced Retail Leasing Agent Specialty: Family Practice Address: [address] [place] [address], [id number] Email: [email or web address] Power Quesada DO Family Provider Non-Staff Referring Provider Specialty: Medical Address: [address] [place] [address]. [facility] [address], [place], [address] Email: Jorge L Garcia MD Attending Provider Non-Staff Specialty: Family Practice Address: [address] [place] [address], [facility] [address], [place], [address] Email: Plan Of Care PT-OP-T Assessment and Plan Start: 01/22/23 08:34 Freq: Status: Active Protocol: Document 05/20/23 16:04 [facility] (Rec: 05/20/23 18:07 [facility] [id number]) Physical Therapy Assessment Goals dizziness Broomcorn Scraper Goal (LTG) Pt will report no instance of lightheadedness or dizziness during her day 05/19-inc since virus LTG Duration 07/22 posture Short Term Goal (STG) Pt will adjust sleeping position w/improved support to dec instances of waking w/inc pain and adjust desk set up to more ergonomic set up. 03/02-woke up w/pain today; about 2-3x/week. STG Duration achieved 03/23 Broomcorn Scraper Goal (LTG) Pt will score at least 4/5 on VCT in both seated and standing to show improved postural alignment to dec pain in neck and head. 03/02-3/5 stand; 4/5 sit LTG Duration achieved MCFARLANE Short Term Goal (STG) Pt will have full neck ROM w/o pain in order to allow daily activities w/o inc pain. STG Duration achieved Broomcorn Scraper Goal (LTG) Pt will report no starts to a MCFARLANE or MCFARLANE for 1 month 03/02-no MCFARLANE; has had a couple instances of start of MCFARLANE but hasn't escalated and cleared her sinuses and it was fine LTG Duration achieved jaw Short Term Goal (STG) Pt will improve jaw opening to at least 40 mm to allow for greater ease w/eating. 03/02-improved 03/23-dec today to 28 mm but improved to 38 after manual 05/19-33mm STG Duration 06/23 Broomcorn Scraper Goal (LTG) Pt will report a more even bite and note that she has does not feel bite is off when trying to chew food, making eating easier. 03/23-no change 05/19-improved since new guards LTG Duration 07/22 Assessment Summary Assessment pt did have inc tightness of neck today. encouraged to try each oral appliance for 1 week fully to see which imrpoved symptomsm ost and discuss w/ dentist re: fit of lger one as they may be able to adjust it . Pt is overall doignw ell with ROM but does have deviation of jaw to L in rest and to R w/opening. cont PT to imrpove jaw and neck symptoms . Physical Therapy Plan Frequency and Duration Frequency of Treatment 1x/Week Duration of treatment (weeks) 8 Plan of Care Start Date 05/20/23 Plan of Care End Date 07/23/23 Therapeutic Interventions Therapeutic Interventions Canalithic Repositioning,Home Exercise Program,Joint Mobilizations,Manual Therapy, Neuromuscular Re-education, Orthotic/Prosthetic Management ,Patient/Caregiver Education, Self-Care/Home Management,Soft Tissue Mobilization,Taping, Therapeutic Activities, Therapeutic Exercises, Vestibular Rehabilitation Modalities Cold Pack/Ice Massage,Electric Stimulation,Hot Packs, Traction- Mechanical Next Visit Focus/Plan Next Note Type Treatment Note Next Visit Plan try exercise w/quick head turns; manual to work on jaw positiona nd neck position Plan of Care Dates Plan of Care Start Date 05/20/23 Plan of Care End Date 07/23/23 Electronically Signed by: Tyesha Fang, PT 05/20/23 8333 If you are in agreement with this Plan of Care, please return a signed and dated copy. I have reviewed this Plan of Care and certify that the skilled therapy services above are required to meet the patient?s needs. Physician Signature Date Printed Name and Credentials Clinical Instructor Signature Printed Name and Credentials
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
== END 2023-06-08 12:22 | disposition home or self-care (01) ==
LOC: PHYS 15:15
PROVIDERS: Family Provider Family Medicine; PCP Nurse Practitioner; Referring Provider Family Medicine; Visit Provider Family Medicine
DX: R68.84 Jaw pain (principal); G89.29 Other chronic pain; M54.2 Cervicalgia; R29.3 Abnormal posture; R42 Dizziness and giddiness; G44.89 Other headache syndrome
CPT/HCPCS: 97110; 97112; 97140; 97162; 97530; 97535

== ENCOUNTER 2023-08-07 21:30 | Emergency (ER) | payer OTHER, SELFPAY ==
--- NOTE | 2023-08-07 21:40 | DI.RAD.S_ITS ---
PROCEDURE: XR CHEST 1V INDICATIONS: chest pain TECHNIQUE: One view of the chest was acquired. COMPARISON: [facility], CR, XR CHEST 1V, 10/22/2020, 4:23. FINDINGS: Surgical changes and devices: None. Lungs and pleura: Lungs are clear. No pleural effusions or pneumothorax. Mediastinum: Mediastinal contours appear normal. Heart size is normal. Bones and chest wall: No suspicious bony lesions. Overlying soft tissues appear unremarkable. IMPRESSION: No acute cardiopulmonary abnormality is seen. Approved by: Amanda Paniagua M.D.,Ph.D. on 08/07/2023 at 22:49
[2023-08-07 21:42] VITALS: BP 143/64; PULSE 77; RESP 18; TEMP 36.7; O2SAT 100; BMI 21.7
--- NOTE | 2023-08-07 21:50 | EKG_ITS ---
[address] [address] Test Date: 2023-08-07 Pat Name: Maryjo Dill Department: Room: Gender: Female Principal Investigator: Norma : 1990 Requested By: Order Number: [id number] Reading MD: Solis Mcmahon MD Measurements Intervals [place] Rate: 70 P: 46 MA: 134 QRS: 17 QRSD: 88 T: 48 QT: 386 QTc: 416 Interpretive Statements Normal sinus rhythm Electronically Signed On 08-09-2023 12:03:22 PDT by Solis Mcmahon MD
--- NOTE | 2023-08-07 22:11 | ED.CHESTPAIN ---
HPI - Chest Pain General Chief Complaint: Chest Pain Stated Complaint: chest tight/erratic heart beat/SOB Time Seen by Provider: 08/07/23 22:11 Source: patient Mode of arrival: Ambulatory Limitations: no limitations History of Present Illness HPI narrative: Patient is a 33-year-old female who presents today with chest tightness. She reports that yesterday she vaped nicotine and thin 5 minute she felt like chest was tight. She sometimes feels palpitations through her what she notices that heart rate is in the 70s and just lying there tonight went up to 103. It is back down. She denies any recent travel she has not significantly short of breath she denies any fever chills or cough. She denies any recent travel reports that she is on a no hormone IUD Related Data Previous Rx's Medication Instructions Recorded escitalopram oxalate 5 mg tablet 10 mg (2 x 5 mg) PO DAILY #180 tabs 07/04/21 cefdinir 300 mg capsule 300 mg PO BID #20 caps 07/11/23 Allergies Allergy/AdvReac Type Severity Reaction Status Date / Time Sulfa (Sulfonamide Allergy Mild skin rash Verified 08/07/23 21:48 Antibiotics) Penicillins AdvReac Mild Rash Verified 08/07/23 21:48 Patient History Medical History Panic attacks Celiac disease Abdominal pain Dizziness Astigmatism Allergies (~2013) Depression (~2013) Anxiety (~2012) Carpal tunnel syndrome (~2010) Chicken pox (~1995) Ovarian cyst (~2008) GERD (gastroesophageal reflux disease) (~2016) Surgical History Anesthesia [place] teeth removed (~2009) Encounter for insertion of ParaGard IUD (~09/28/16) Family History Father Hyperlipidemia Hypertension Mother Hyperlipidemia Sister Mental health problem Grandfather Cancer Grandmother History of heart disease Stroke Grandmother Cancer Social History Smoking Status: Current every day smoker Smoking Status: Current every day smoker tobacco type: vaping alcohol intake frequency: 0-2 drinks per day Substance Use Type: does not use Exam Initial Vital Signs Initial Vital Signs: Vital Signs Temperature 98.1 F 08/07/23 21:42 Pulse Rate 77 08/07/23 21:42 Respiratory Rate 18 08/07/23 21:42 Blood Pressure 143/64 H 08/07/23 21:42 Pulse Oximetry 100 08/07/23 21:42 Oxygen Delivery Method Room Air 08/07/23 21:42 GENERAL: Alert well-appearing 33-year-old female and in no acute distress. HEENT: Head atraumatic,EOMI, pupils reactive, face symmetric, moist mucous membranes CARDIOVASCULAR: Regular rate and rhythm without murmurs, rubs or gallops. RESPIRATORY: Breath sounds equal bilaterally, no wheezes rales or rhonchi. EXTREMITIES: Normal range of motion, no clubbing or edema. Neurovascularly intact NEUROLOGICAL: Alert and oriented x4.Normal gait and speech. SKIN: Warm, dry, no laceration, no petechiae, no rashes or lesions. Course Orders Ordered: ED Orders 08/07/23 21:40 XR chest 1V Stat 08/07/23 21:42 EKG-12 Lead Stat Vital Signs Vital signs: Vital Signs - 8 hr 08/07/23 21:42 Temperature 98.1 F Pulse Rate 77 Respiratory Rate 18 Blood Pressure 143/64 H Pulse Oximetry 100 Oxygen Delivery Method Room Air MDM - Chest Pain Imaging Data Chest x-ray: Radiologist's Impression: PROCEDURE: XR CHEST 1V INDICATIONS: chest pain TECHNIQUE: One view of the chest was acquired. COMPARISON: [facility], , XR CHEST 1V, 10/22/2020, 4:23. FINDINGS: Surgical changes and devices: None. Lungs and pleura: Lungs are clear. No pleural effusions or pneumothorax. Mediastinum: Mediastinal contours appear normal. Heart size is normal. Bones and chest wall: No suspicious bony lesions. Overlying soft tissues appear unremarkable. IMPRESSION: No acute cardiopulmonary abnormality is seen. Approved by: Amanda Paniagua M.D.,Ph.D. on 08/07/2023 at 22:49 ECG Data Interpretation: Normal sinus rhythm rate 70 WI interval 134 QRS [address] changes or T-wave inversions no Q-waves MDM Narrative Medical decision making narrative: Patient 33-year-old female presents today with chest tightness has been ongoing for about 24 hours 35 minutes after she vaped. Chest x-ray has been reviewed there is no evidence of pneumothorax or other abnormality. EKG does not show any abnormality. She does report tachycardia home but she has not tachycardic here low suspicion for pulmonary embolism she has a non hormonal IUD in place has not traveled and is low risk. She has not hypoxic. She has not having any sort of respiratory distress. He has not having any sort of wheezing. She is not having any sort of infectious symptoms would likely not benefit from albuterol. Recommend supportive care at this time. Discharge Plan Departure Patient Disposition: Home Clinical Impression: Atypical chest pain Instructions: DI for Atypical Chest Pain, DI for Palpitations Activity Restrictions/Additional Instructions: *You have been diagnosed with chest tightness *What to do: At this time your EKG and chest x-ray overall reassuring. Continue to monitor *Continue to take medications as directed *Follow up with your primary care provider in 2-3 days or call [phone] *Return to ER if you should have increasing shortness of breath persistently elevated heart rate or any new, worsening or concerning symptoms Prescriptions: No Action cefdinir 300 mg capsule 300 mg PO BID Qty: 20 0RF escitalopram oxalate 5 mg tablet 10 mg PO DAILY Qty: 180 3RF Rx Instructions: Take 2 tabs daily for anxiety. Referrals: Magaly Tavarez ARNP [Primary Care Provider] - Stand Alone Forms: Patient Portal/API
== END 2023-08-07 22:34 | disposition home or self-care (01) ==
PROVIDERS: Emergency Provider Emergency Medicine; Family Provider Family Medicine; PCP Nurse Practitioner
DX: R07.89 Other chest pain (principal)
CPT/HCPCS: 71045; 93005; 93010; 99281; 99284